=== PATIENT | male | born 1950 | race Caucasian/White ===

== ENCOUNTER 2016-11-28 14:01 | Inpatient (IN) ==
[2016-11-28] MEDS ORDERED: methylPREDNISolone 125 MG/2 ML VIAL IV ONE (14:13)
[2016-11-28] MEDS ORDERED: Aspirin 325 MG TABLET PO ONE (14:13)
[2016-11-28] MEDS ORDERED: Ipratropium/Albuterol Neb 3 ML IH ONE (14:13)
--- NOTE | 2016-11-28 14:20 | Emergency Department Note ---
Disposition Clinical Impression: Acute exacerbation of chronic obstructive airways disease, Community acquired pneumonia, Pulmonary edema Disposition: Admitted As Inpatient Condition: Fair Referrals: NO,PCP [Non-Partnered Physician] - Forms: ED Satisfaction Letter Time of Disposition: 15:16 SOB HPI - General Chief Complaint: ED Shortness of Breath/Dyspnea Stated Complaint: ELSY, COPD Time Seen by Provider: 11/28/16 14:14 Source: patient, EMS Mode of arrival: ambulatory Limitations: no limitations Nursing Notes Reviewed: Yes Vital Signs Reviewed: Yes - History of Present Illness This is a 66-year-old male who comes in for increased shortness of breath over the last 2 weeks. Patient is running a fever currently here. Patient has had a productive cough. Patient is a cigarette smoker and does have COPD. Patient denies any chest pain although he states he does feel tight. Patient is not having any abdominal pain, vomiting, diarrhea, or urinary symptoms. Pt Subjective Complaint: shortness of breath Onset (ago): week(s) (2) Severity: moderate - Related Data Home Medications Medication Instructions Recorded Confirmed Atorvastatin Calcium [Lipitor] 80 mg PO HS 09/03/15 11/28/16 Clopidogrel [Plavix] 75 mg PO QAM 09/03/15 11/28/16 Furosemide [Lasix] 40 mg PO BID 09/03/15 11/28/16 Levothyroxine [Synthroid] 50 mcg PO DAILY 09/03/15 11/28/16 Multivitamin [Multi-Day Vitamins] 1 each PO QAM 09/03/15 11/28/16 Potassium Chloride [Klor-Con 10 meq PO DAILY 09/03/15 11/28/16 Sprinkle] Ropinirole HCl [Requip] 2 mg PO HS 09/03/15 11/28/16 Spironolactone [Aldactone] 25 mg PO BID 09/03/15 11/28/16 TraZODone 50 mg PO HS 09/03/15 11/28/16 Sertraline HCl 150 mg PO DAILY 09/14/15 11/28/16 Tiotropium [Spiriva] 18 mcg IH DAILY 09/14/15 11/28/16 Warfarin [Coumadin] 2 mg PO MOWETHFRSA 09/14/15 11/28/16 Amiodarone [Cordarone] 200 mg PO HS 09/23/15 11/28/16 Mexiletine [Mexitil] 150 mg PO TID 09/23/15 11/28/16 Albuterol Sulfate [Proair Hfa] 2 puff IH Q4H PRN 09/09/16 11/28/16 Buspirone HCl [Buspar] 10 mg PO TID 09/09/16 11/28/16 Carvedilol 3.125 mg PO BID 10/18/16 11/28/16 Lisinopril 2.5 mg PO DAILY 10/18/16 11/28/16 Warfarin [Coumadin] 4 mg PO SUTU 10/18/16 11/28/16 Guaifenesin/Codeine Phosphate 5 ml PO Q4H 11/28/16 11/28/16 [Guaifenesin-Codeine Syrup] Previous Rx's Medication Instructions Recorded Cephalexin [Keflex] 500 mg PO QID #40 capsule 11/24/16 PredniSONE [Prednisone] 60 mg PO DAILY 5 Days 11/24/16 Allergies Allergy/AdvReac Type Severity Reaction Status Date / Time Oxycodone [From Percocet] Allergy Itching Verified 10/18/16 10:41 All systems ED: reviewed and negative except as stated. Constitutional: Denies: fever, chills, weakness, weight change Eyes: Denies: eye pain, eye discharge, vision change ENT ED: Denies: ear pain, throat pain, dental pain, hearing loss, epistaxis, congestion, dysphagia Cardiovascular: Denies: chest pain, palpitations, dyspnea on exertion, edema, syncope Respiratory: Reports: dyspnea, wheezes. Denies: cough, hemoptysis, stridor Gastrointestinal: Denies: abdominal pain, nausea, vomiting, diarrhea, constipation, hematemesis, melena, hematochezia Genitourinary: Denies: urgency, dysuria, frequency, hematuria Musculoskeletal: Denies: back pain, neck pain, arthralgia, myalgia Integumentary: Denies: rash, abrasion, lesions Neurological: Denies: headache, weakness, numbness, paresthesias, confusion, abnormal gait, vertigo Psychiatric: Denies: anxiety, depression, suicidal thoughts, homicidal thoughts , auditory hallucinations, visual hallucinations Endocrine: Denies: fatigue Hematological/Lymphatic: Denies: easy bleeding, easy bruising Allergic/Immunologic: Denies: facial swelling, urticaria Past Medical History - Past Medical History Attestation: Yes The following information was validated with the patient. Source: patient Medical history: Reports: COPD, hyperlipidemia, hypertension, myocardial infarction, other Surgical history: Reports: coronary bypass (CABG), pacemaker/AICD, other, AICD Psychiatric history: Reports: anxiety, depression, other - Social History Smoking Status: Current every day smoker Smokeless Tobacco Status: No Alcohol use: Reports: none Drug use: Reports: none Physical Exam - General Limitations: no limitations General appearance: alert, in no apparent distress - Head Head exam: atraumatic, normocephalic, normal inspection - Eye Eye exam: Present: normal appearance, PERRL, EOMI - ENT ENT exam: normal exam, normal oropharynx, mucous membranes moist - Expanded ENT Exam External ear exam: Present: normal external inspection Mouth exam: Present: normal external inspection Teeth exam: Present: normal inspection Throat exam: Present: normal inspection - Neck Neck exam: Present: normal inspection, full ROM, trachea midline - Chest Chest inspection: Present: normal inspection, symmetric chest wall rise - Respiratory Respiratory exam: Present: wheezes, other (rhonchi) - Cardiovascular Cardiovascular exam: Present: normal rhythm, tachycardia, normal heart sounds - Abdominal Exam Abdominal exam: Present: soft, Non-Tender. Absent: tenderness, distention, guarding, rebound, rigidity - Extremities Exam Extremities exam: Present: normal inspection, full ROM. Absent: tenderness, pedal edema - Expanded Upper Extremity Exam Shoulder exam: Present: normal inspection, full ROM Arm exam: Present: normal inspection, full ROM Elbow exam: Present: normal inspection, full ROM Forearm/Wrist exam: Present: normal inspection, full ROM Hand exam: Present: normal inspection, full ROM Vascular exam: Normal: capillary refill, radial pulse - Expanded Lower Extremity Exam Hip/Pelvis exam: Present: normal inspection, full ROM Upper leg exam: Present: normal inspection, full ROM Knee exam: Present: normal inspection, full ROM Lower leg exam: Present: normal inspection, full ROM Ankle exam: Present: normal inspection, full ROM Foot/toe exam: Present: normal inspection, full ROM Neurovascular/Tendon exam: Absent: motor deficit, sensory deficit, tendon deficit - Back Exam Back exam: Present: normal inspection, full ROM. Absent: tenderness - Neurological Exam Neurological exam: Present: alert, oriented X3 - Expanded Neurological Exam Patient oriented to: Present: person, place, time Coma Scale Eye Opening: Spontaneous Coma Scale Motor Response: Obeys Commands Coma Scale Verbal Response: Oriented Coma Scale Total: 15 - Psychiatric Psychiatric exam: Present: normal affect, normal mood - Skin Skin exam: Present: warm, dry, intact, normal color Course - Consultations Consultation #1: I spoke with Dr. Minh koch to admit. Time: 15:51 Vital Signs Temperature 101.2 F H 11/28/16 14:04 Pulse Rate 103 11/28/16 14:04 Respiratory Rate 24 11/28/16 14:04 Blood Pressure 128/74 11/28/16 14:04 O2 Sat by Pulse Oximetry 75 L 11/28/16 14:04 Temperature 101.2 F H 11/28/16 14:04 Pulse Rate 86 11/28/16 15:18 Respiratory Rate 20 11/28/16 15:18 Blood Pressure 92/60 11/28/16 15:18 O2 Sat by Pulse Oximetry 98 11/28/16 15:18 Oxygen Delivery Oxygen Delivery Bipap Shortness of Breath/Dyspnea - Medical Records Medical records reviewed: Yes I reviewed the patient's medical records. - Lab Data Lab results reviewed: Yes I reviewed the patient's lab results. Result diagrams: 11/28/16 14:34 11/28/16 14:34 Lab Results 11/28/16 11/28/16 11/28/16 Range/Units 14:34 14:34 14:34 WBC 20.4 H (4.3-11.1) K/mcL RBC 4.21 (4.19-5.50) M/mcL Hgb 13.3 (12.9-16.9) g/dL Hct 39.8 (37.5-50.1) % MCV 94.5 (83.0-100.0) fL MCH 31.6 (28.0-33.3) pg MCHC 33.4 (31.6-35.5) g/dL RDW 14.2 (11.5-14.5) % Plt Count 283 (140-400) K/mcL MPV 9.6 (9.4-12.4) fL Immature Gran % 1.4 (0-4) % Seg Neutrophils % 80.2 % Lymphocytes % 10.7 % Monocytes % 7.6 % Eosinophils % 0.0 % Basophils % 0.1 % Neutrophils # 16.3 H (1.6-8.9) K/mcL Lymphocytes # 2.2 (0.6-4.6) K/mcL Monocytes # 1.5 H (0.0-1.3) K/mcL Eosinophils # 0.0 (0.0-0.6) K/mcL Basophils # 0.0 (0.0-0.2) K/mcL Nucleated RBCs/100 WBC 0.2 H (0) /100 WBC ABG pH (7.32-7.45) pH Units ABG pCO2 (35-45) mmHg ABG pO2 (85-104) mmHg ABG HCO3 (21-27) mEQ/L ABG Total CO2 (20-26) mEq/L ABG O2 Saturation (95-98) % ABG Base Excess (-2.0 to 3.0) mEq/L Blood Gas Modality Inspired O2 % Sodium 134 L (136-145) mEq/L Potassium 4.3 (3.5-4.5) mEq/L Chloride 100 (98-109) mEq/L Carbon Dioxide 21 (19-29) mEq/L BUN 23 (8-26) mg/dL Creatinine 0.88 (0.72-1.25) mg/dL Est GFR ( Amer) > 60 (> 60) Est GFR (Non-Af Amer) > 60 (> 60) BUN/Creatinine Ratio 26 (6-26) Glucose 99 (70-99) mg/dL Calculated Osmolality 282 (280-300) Lactic Acid (0.5-2.2) mmol/L Calcium 9.0 (8.6-10.8) mg/dL Troponin I (0-0.03) ng/mL B-Natriuretic Peptide 876 H (0-100) pg/mL 11/28/16 11/28/16 11/28/16 Range/Units 14:34 14:34 14:46 WBC (4.3-11.1) K/mcL RBC (4.19-5.50) M/mcL Hgb (12.9-16.9) g/dL Hct (37.5-50.1) % MCV (83.0-100.0) fL MCH (28.0-33.3) pg MCHC (31.6-35.5) g/dL RDW (11.5-14.5) % Plt Count (140-400) K/mcL MPV (9.4-12.4) fL Immature Gran % (0-4) % Seg Neutrophils % % Lymphocytes % % Monocytes % % Eosinophils % % Basophils % % Neutrophils # (1.6-8.9) K/mcL Lymphocytes # (0.6-4.6) K/mcL Monocytes # (0.0-1.3) K/mcL Eosinophils # (0.0-0.6) K/mcL Basophils # (0.0-0.2) K/mcL Nucleated RBCs/100 WBC (0) /100 WBC ABG pH 7.42 (7.32-7.45) pH Units ABG pCO2 41 (35-45) mmHg ABG pO2 107 H (85-104) mmHg ABG HCO3 26.6 (21-27) mEQ/L ABG Total CO2 27.9 H (20-26) mEq/L ABG O2 Saturation 98 (95-98) % ABG Base Excess 1.9 (-2.0 to 3.0) mEq/L Blood Gas Modality BIPAP Inspired O2 80 % Sodium (136-145) mEq/L Potassium (3.5-4.5) mEq/L Chloride (98-109) mEq/L Carbon Dioxide (19-29) mEq/L BUN (8-26) mg/dL Creatinine (0.72-1.25) mg/dL Est GFR ( Amer) (> 60) Est GFR (Non-Af Amer) (> 60) BUN/Creatinine Ratio (6-26) Glucose (70-99) mg/dL Calculated Osmolality (280-300) Lactic Acid 2.3 H (0.5-2.2) mmol/L Calcium (8.6-10.8) mg/dL Troponin I 0.02 (0-0.03) ng/mL B-Natriuretic Peptide (0-100) pg/mL - Radiology Data Radiology results reviewed: Yes I reviewed the patient's radiology results. - EKG Data EKG attestation: Yes I reviewed and interpreted this EKG. EKG shows normal: Reports: sinus rhythm Rate: Reports: normal (paced) When compared to previous EKG there are: no significant changes Interpretation: Reports: no acute changes
[2016-11-28 14:47] LABS: Basophils % 0.1 %; Hematocrit 39.8 % (37.5-50.1); Hemoglobin 13.3 g/dL (12.9-16.9); Immature Granulocytes % 1.4 % (0-4); Lymphocytes # 2.2 K/mcL (0.6-4.6); Lymphocytes % 10.7 %; Mean Corpuscular HGB Conc 33.4 g/dL (31.6-35.5); Mean Corpuscular Hemoglobin 31.6 pg (28.0-33.3); Mean Corpuscular Volume 94.5 fL (83.0-100.0); Mean Platelet Volume 9.6 fL (9.4-12.4); Monocytes # 1.5 K/mcL (0.0-1.3); Monocytes % 7.6 %; Neutrophils # 16.3 K/mcL (1.6-8.9); Nucleated Red Blood Cells 0.2 /100 WBC (0); Platelet Count 283 K/mcL (140-400); Red Blood Count 4.21 M/mcL (4.19-5.50); Red Cell Distribution Width 14.2 % (11.5-14.5); Segmented Neutrophils % 80.2 %
[2016-11-28] MEDS ORDERED: Levofloxacin 750 MG/150 ML 750 MG/150 ML BAG IVPB ONE (14:55)
[2016-11-28 14:57] LABS: ABG Base Excess 1.9 mEq/L (-2.0 to 3.0); ABG HCO3 26.6 mEQ/L (21-27); ABG Oxygen Saturation 98 % (95-98); ABG PCO2 41 mmHg (35-45); ABG PH 7.42 pH Units (7.32-7.45); ABG PO2 107 mmHg (85-104); ABG TCO2 27.9 mEq/L (20-26); Blood Gas FiO2 80 %
[2016-11-28 15:00] LABS: BUN/Creatinine Ratio 26 (6-26); Blood Urea Nitrogen 23 mg/dL (8-26); Carbon Dioxide 21 mEq/L (19-29); Chloride 100 mEq/L (98-109); Glucose 99 mg/dL (70-99); Osmolality,Calculated 282 (280-300); Potassium 4.3 mEq/L (3.5-4.5); Sodium 134 mEq/L (136-145); eGFR For African Americans > 60 (> 60); eGFR For Non-African Americans > 60 (> 60)
[2016-11-28] MEDS ORDERED: 0.9 % Sodium Chloride 1,000 ML IV SCH (15:45)
[2016-11-28 16:03] LABS: Activated Partial Thrombo Time 36.4 Seconds (26.0-36.0)
[2016-11-28 16:08] LABS: INR 6.6
[2016-11-28 16:23] LABS: Magnesium 1.7 mg/dL (1.6-2.6)
[2016-11-28] MEDS ORDERED: Ondansetron 4 MG/2 ML VIAL IVP PRN (19:11)
[2016-11-28] MEDS ORDERED: Acetaminophen 325 MG TABLET PO PRN (19:11)
[2016-11-28] MEDS ORDERED: Naloxone 0.4 MG/ML INJ IVP PRN (19:11)
--- NOTE | 2016-11-28 19:29 | Internal Med History&Physical ---
Date of Encounter: 11/28/16 Time of Encounter: 17:27 Assessment and Plan (1) Supratherapeutic INR Current visit: Yes Status: Acute Hold Coumadin. Check daily INR, consult pharmacy. (2) Acute exacerbation of chronic obstructive airways disease Current visit: Yes Status: Acute Inhaled bronchodilators. Start high-dose IV steroids. Supplemental oxygen. Positive pressure ventilation. Check blood gas in the morning. Smoking cessation counseling given. (3) Community acquired pneumonia Current visit: Yes Status: Acute He has a history of recurrent pneumonias and has been treated with antibiotics. At this point I will start broad-spectrum IV antibiotics with Zosyn and vancomycin. Follow-up blood culture and sensitivities. (4) DVT prophylaxis Current visit: No Status: Acute The patient is supratherapeutic on Coumadin additional prophylaxis needed at this time. We will check daily INR and continue warfarin when the INR dips below 3.0. (5) History of DVT (deep vein thrombosis) Current visit: No Status: Acute Continue Coumadin. (6) Ischemic cardiomyopathy Current visit: No Status: Chronic (7) Tobacco use disorder Current visit: No Status: Chronic Start NicoDerm. Internal Medicine - H&P: HPI Chief complaint: Shortness of breath Admitted From: Emergency Dept Plans for Post Hospital Care: Home History of present illness: Mr. Garrido is a 66 year old male with multiple medical comorbidities including CAD status post CABG, COPD and chronic hypoxic respiratory failure who presented to the hospital for shortness of breath. The history is limited by respiratory distress and most of the history is obtained from the patient's . The patient is currently on BiPAP. He has been having 3 weeks of progressively worsening shortness of breath initially has had symptoms of upper respiratory tract infection however that has resolved. Symptoms are associated with dry cough, substernal dull chest pain and subjective fevers. A 14 point review of systems was negative except as above Social history: Denies alcohol, he is a long-term smoker, currently smokes 10 cigarettes a day, denies drug use. Family history: Reviewed and found to be noncontributory. Past Med Surg Social Fam HX - Past Medical History Medical history: COPD, hyperlipidemia, hypertension, myocardial infarction, other Psychiatric history: anxiety, depression, other - Past Surgical History Surgical History: coronary bypass (CABG), pacemaker/AICD, other, AICD - Social History Smoking Status: Current every day smoker Smokeless Tobacco Status: No Alcohol use: none Drug use: none - Family History Mother Living Status: Hx Family Cancer: Yes Father Hx Family Cardiac Disorders: Yes Internal Medicine - H&P: Meds Atorvastatin Calcium [Lipitor] 80 mg PO HS 09/03/15 [History] Clopidogrel [Plavix] 75 mg PO QAM 09/03/15 [History] Furosemide [Lasix] 40 mg PO BID 09/03/15 [History] Levothyroxine [Synthroid] 50 mcg PO DAILY 09/03/15 [History] Multivitamin [Multi-Day Vitamins] 1 each PO QAM 09/03/15 [History] Potassium Chloride [Klor-Con Sprinkle] 10 meq PO DAILY 09/03/15 [History] Ropinirole HCl [Requip] 2 mg PO HS 09/03/15 [History] Spironolactone [Aldactone] 25 mg PO BID 09/03/15 [History] TraZODone 50 mg PO HS 09/03/15 [History] Sertraline HCl 150 mg PO DAILY 09/14/15 [History] Tiotropium [Spiriva] 18 mcg IH DAILY 09/14/15 [History] Warfarin [Coumadin] 2 mg PO MOWETHFRSA 09/14/15 [History] Amiodarone [Cordarone] 200 mg PO HS 09/23/15 [History] Mexiletine [Mexitil] 150 mg PO TID 09/23/15 [History] Albuterol Sulfate [Proair Hfa] 2 puff IH Q4H PRN 09/09/16 [History] Buspirone HCl [Buspar] 10 mg PO TID 09/09/16 [History] Carvedilol 3.125 mg PO BID 10/18/16 [History] Lisinopril 2.5 mg PO DAILY 10/18/16 [History] Warfarin [Coumadin] 4 mg PO SUTU 10/18/16 [History] Cephalexin [Keflex] 500 mg PO QID #40 capsule 11/24/16 [Rx] PredniSONE [Prednisone] 60 mg PO DAILY 5 Days 11/24/16 [Rx] Guaifenesin/Codeine Phosphate [Guaifenesin-Codeine Syrup] 5 ml PO Q4H 11/28/16 [ History] Allergies Oxycodone [From Percocet] Allergy (Verified 10/18/16 10:41) Itching All Systems PM: A 10-system review of systems was performed and is negative for pertinent findings except as documented above in the HPI. - Constitutional Vitals: Temp Pulse Resp BP Pulse Ox 97.6 F 81 20 104/80 83 L 11/28/16 19:25 11/28/16 19:25 11/28/16 19:25 11/28/16 19:25 11/28/16 19:25 General appearance: Present: mild distress, A&O X 3 - Eye Eye exam: Present: PERRL, conjuntiva pink, sclera anicteric Pupils: Present: PERRL - Neck Neck exam general surgery: Present: supple, trachea midline. Absent: lymphadenopathy - Respiratory Respiratory exam: Present: decreased breath sounds, prolonged expiratory phase. Absent: accessory muscle use, rales, rhonchi, wheezes - Cardiovascular Cardiovascular exam: Present: RRR, +S1, +S2. Absent: diastolic murmur, gallop, rubs, systolic murmur - GI/Abdominal GI/Abdominal exam: Present: normal bowel sounds, soft, no peritoneal signs. Absent: distended, tenderness - Extremities Exam Extremities exam: Present: warm, radial pulses palpable and symetrical. Absent : calf tenderness, cyanotic, pedal edema - Neurological Exam Neurological exam: Present: CN II-XII intact, oriented X3, no focal deficits. Absent: pronater drift, facial droop, speech deficit - Skin Skin exam: Present: dry, intact Internal Med - H&P Results - Labs CBC & Chem 7: 11/28/16 14:34 11/28/16 14:34 - Impressions Chest x-ray reviewed by myself reveals right lower lobe interstitial infiltrate consistent with pneumonia. - VTE Reasons for not Prescribing Prophylaxis: Not indicated-Anticoagulated or INR therapeutic
[2016-11-28] MEDS ORDERED: Warfarin perPT PO PRN (20:00)
[2016-11-28] MEDS: Ipratropium/Albuterol Neb 3 ML IH SCH ×2 (20:31→23:04)
[2016-11-28] MEDS: Spironolactone 25 MG TABLET PO SCH (21:00)
[2016-11-28] MEDS: traZODone 50 MG TABLET PO SCH (21:00)
[2016-11-28] MEDS: *HR* Amiodarone 200 MG TABLET PO SCH (21:00)
[2016-11-28] MEDS: rOPINIRole 1 MG TABLET PO SCH (21:00)
[2016-11-28] MEDS: Vancomycin 1,250 MG in D5% in Water 250 ML IVPB SCH (21:03)
[2016-11-28] MEDS: Nicotine 21 MG PATCH.TD24 TD SCH (22:44)
[2016-11-28] MEDS: 0.9 % Sodium Chloride 1,000 ML IVC SCH (22:45)
[2016-11-29] MEDS: methylPREDNISolone 125 MG/2 ML VIAL IVP SCH ×5 (01:19→23:51)
[2016-11-29] MEDS: Piperacillin/Tazobactam 3.375 GM in D5% in Water (Mini-Bag+) 100 ML IVPB SCH ×4 (01:20→23:51)
[2016-11-29 02:18] LABS: VBG HCO3 26.4 mEq/L (21-27); VBG PH 7.34 pH Units (7.32-7.42)
[2016-11-29 02:21] LABS: Hematocrit 40.9 % (37.5-50.1); Hemoglobin 13.3 g/dL (12.9-16.9); Mean Corpuscular HGB Conc 32.5 g/dL (31.6-35.5); Mean Corpuscular Hemoglobin 31.2 pg (28.0-33.3); Mean Platelet Volume 9.8 fL (9.4-12.4); Platelet Count 255 K/mcL (140-400); Red Blood Count 4.26 M/mcL (4.19-5.50); Red Cell Distribution Width 14.4 % (11.5-14.5)
[2016-11-29 02:32] LABS: BUN/Creatinine Ratio 25 (6-26); Blood Urea Nitrogen 20 mg/dL (8-26); Calcium 9.1 mg/dL (8.6-10.8); Carbon Dioxide 21 mEq/L (19-29); Chloride 100 mEq/L (98-109); Glucose 182 mg/dL (70-99); Magnesium 2.2 mg/dL (1.6-2.6); Osmolality,Calculated 283 (280-300); Potassium 4.2 mEq/L (3.5-4.5); Sodium 133 mEq/L (136-145); eGFR For African Americans > 60 (> 60); eGFR For Non-African Americans > 60 (> 60)
[2016-11-29 02:33] LABS: INR 4.9; Prothrombin Time 55.7 Seconds (9.4-12.1)
[2016-11-29 03:03] LABS: Lymphocytes # 1.4 K/mcL (0.6-4.6); Monocytes # 2.1 K/mcL (0.0-1.3); Neutrophils # 13.7 K/mcL (1.6-8.9); Platelet Estimate Normal (Normal)
[2016-11-29] MEDS: Ipratropium/Albuterol Neb 3 ML IH SCH ×6 (04:03→23:15)
[2016-11-29] MEDS: 0.9 % Sodium Chloride 1,000 ML IVC SCH (05:49)
[2016-11-29] MEDS: Spironolactone 25 MG TABLET PO SCH ×2 (09:18→20:41)
[2016-11-29] MEDS: Nicotine 21 MG PATCH.TD24 TD SCH (09:20)
[2016-11-29] MEDS: Vancomycin 1,250 MG in D5% in Water 250 ML IVPB SCH ×2 (09:21→22:18)
[2016-11-29] MEDS: Pantoprazole 40 MG VIAL IVP SCH (09:22)
[2016-11-29] MEDS: *HR* HYDROmorphone (PF) 1 MG/ML SYRINGE IVP PRN ×3 (09:26→22:18)
--- NOTE | 2016-11-29 10:56 | Internal Med Progress Note ---
Date of Encounter: 11/29/16 Time of Encounter: 10:47 - Assessment and plan (1) Acute exacerbation of chronic obstructive airways disease Current Visit: Yes Status: Acute (2) Community acquired pneumonia Current Visit: Yes Status: Acute (3) Supratherapeutic INR Current Visit: Yes Status: Acute Assessment and plan: continue steroids and nebs, cont oxygen. pt reports home use of oxygen at night abnormal troponin could be due to copd exacerbation, will obtain echo if no recent one done. cont to hold coumadin, monitor inr. - Subjective Interval history: f/u for copd, pt reports some improvement today. - Constitutional Vitals: Temp Pulse Resp BP Pulse Ox 97.5 F L 60 17 123/75 93 L 11/29/16 06:00 11/29/16 06:00 11/29/16 07:51 11/29/16 06:00 11/29/16 07:51 General appearance: Present: mild distress, A&O X 3 - Head Head exam: Present: atraumatic, normocephalic - Eye Eye exam: Present: PERRL, conjuntiva pink, sclera anicteric Pupils: Present: PERRL - Neck Neck exam general surgery: Present: supple, trachea midline. Absent: lymphadenopathy - Respiratory Respiratory exam: Present: decreased breath sounds, CTAB. Absent: accessory muscle use, rales, rhonchi, wheezes - Cardiovascular Cardiovascular exam: Present: RRR, +S1, +S2. Absent: diastolic murmur, gallop, rubs, systolic murmur - GI/Abdominal GI/Abdominal exam: Present: normal bowel sounds, soft, no peritoneal signs. Absent: distended, tenderness - Extremities Exam Extremities exam: Present: warm, radial pulses palpable and symetrical. Absent : calf tenderness, cyanotic, pedal edema - Neurological Exam Neurological exam: Present: CN II-XII intact, oriented X3, no focal deficits. Absent: pronater drift, facial droop, speech deficit - Skin Skin exam: Present: dry, intact Internal Medicine: Result - Labs CBC & Chem 7: 11/29/16 01:17 11/29/16 01:17 Labs: Short CBC 11/29/16 Range/Units : WBC 17.5 H (4.3-11.1) K/mcL Hgb 13.3 (12.9-16.9) g/dL Hct 40.9 (37.5-50.1) % Plt Count 255 (140-400) K/mcL Neutrophils # 13.7 H (1.6-8.9) K/mcL BMP 11/29/16 01:17 Sodium 133 L Potassium 4.2 Chloride 100 Carbon Dioxide 21 BUN 20 Creatinine 0.79 Glucose 182 H Calcium 9.1 Cardiac Enzymes 11/28/16 11/29/16 Range/Units 21:56 01:17 Troponin I 0.19 H* 0.23 H* (0-0.03) ng/mL - ABG Interpretation ABG results: ABG ABG pH 7.42 pH Units (7.32-7.45) 11/28/16 14:46 ABG pCO2 41 mmHg (35-45) 11/28/16 14:46 ABG pO2 107 mmHg (85-104) H 11/28/16 14:46 ABG O2 Saturation 98 % (95-98) 11/28/16 14:46 PT/INR, D-dimer PT 55.7 Seconds (9.4-12.1) H* 11/29/16 01:17 D-Dimer 494 ng/mLFEU (0-500) 11/28/16 14:30 - VTE Reasons for not Prescribing Prophylaxis: Not indicated-Anticoagulated or INR therapeutic Consult Discharge Plan - Plan Referrals: Kiya Smallwood MD [Primary Care Provider] -
--- NOTE | 2016-11-29 14:40 | Electrocardiograph Report ---
[facility] Test Date: 2016-11-28 Pat Name: Kobi Garrido Department: 102 Room: 2NE28 Gender: M [employer]assembly Supervisor: [facility] : 1950 Requested By: Isra Nicole Order Number: [id number] Reading MD: Mily Betts Measurements Intervals [place] Rate: 102 P: 69 OR: 117 QRS: 140 QRSD: 161 T: -35 QT: 388 QTc: 447 Interpretive Statements ELECTRONIC VENTRICULAR PACEMAKER ABNORMAL RHYTHM ECG Electronically Signed On 11-29-16 14:28:38 EST by Mily Betts
[2016-11-29] MEDS: traZODone 50 MG TABLET PO SCH (20:40)
[2016-11-29] MEDS: rOPINIRole 1 MG TABLET PO SCH (20:41)
[2016-11-29] MEDS: *HR* Amiodarone 200 MG TABLET PO SCH (20:41)
[2016-11-30] MEDS: Ipratropium/Albuterol Neb 3 ML IH SCH ×6 (03:53→23:53)
[2016-11-30] MEDS: methylPREDNISolone 125 MG/2 ML VIAL IVP SCH (05:12)
[2016-11-30 06:40] LABS: Basophils % 0.1 %; Hematocrit 36.6 % (37.5-50.1); Hemoglobin 12.3 g/dL (12.9-16.9); Immature Granulocytes % 0.7 % (0-4); Lymphocytes # 0.6 K/mcL (0.6-4.6); Lymphocytes % 2.9 %; Mean Corpuscular HGB Conc 33.6 g/dL (31.6-35.5); Mean Corpuscular Hemoglobin 31.9 pg (28.0-33.3); Mean Corpuscular Volume 94.8 fL (83.0-100.0); Mean Platelet Volume 9.5 fL (9.4-12.4); Monocytes # 0.8 K/mcL (0.0-1.3); Monocytes % 4.1 %; Neutrophils # 17.9 K/mcL (1.6-8.9); Platelet Count 248 K/mcL (140-400); Red Blood Count 3.86 M/mcL (4.19-5.50); Red Cell Distribution Width 14.4 % (11.5-14.5); Segmented Neutrophils % 92.2 %
[2016-11-30 06:46] LABS: Prothrombin Time 45.1 Seconds (9.4-12.1)
[2016-11-30 06:53] LABS: BUN/Creatinine Ratio 32 (6-26); Blood Urea Nitrogen 21 mg/dL (8-26); Calcium 8.5 mg/dL (8.6-10.8); Carbon Dioxide 22 mEq/L (19-29); Chloride 106 mEq/L (98-109); Glucose 197 mg/dL (70-99); Osmolality,Calculated 292 (280-300); Potassium 4.2 mEq/L (3.5-4.5); Sodium 137 mEq/L (136-145); eGFR For African Americans > 60 (> 60); eGFR For Non-African Americans > 60 (> 60)
[2016-11-30] MEDS ORDERED: Aminoglycoside Consult 1 EACH MC ONE (08:15)
[2016-11-30] MEDS: Nicotine 21 MG PATCH.TD24 TD SCH (09:43)
[2016-11-30] MEDS: Spironolactone 25 MG TABLET PO SCH ×2 (09:44→20:33)
[2016-11-30] MEDS: Pantoprazole 40 MG VIAL IVP SCH (09:46)
[2016-11-30] MEDS: Piperacillin/Tazobactam 3.375 GM in D5% in Water (Mini-Bag+) 100 ML IVPB SCH ×3 (09:46→23:23)
[2016-11-30] MEDS ORDERED: methylPREDNISolone 125 MG/2 ML VIAL IVP SCH ×2 (10:35→16:00)
--- NOTE | 2016-11-30 10:52 | Internal Med Progress Note ---
Date of Encounter: 11/30/16 Time of Encounter: 10:46 - Assessment and plan (1) Acute exacerbation of chronic obstructive airways disease Current Visit: Yes Status: Acute (2) Community acquired pneumonia Current Visit: Yes Status: Acute (3) Supratherapeutic INR Current Visit: Yes Status: Acute Assessment and plan: start to wean steroids, likely driving up the leukocytosis. continue nebs, cont oxygen. continue IV Zosyn, stop Vancomycin. will recheck troponin today to ensure it is trending downwards. recent echo shows severely diminshed EF, with pacemaker leads. cont to hold coumadin, mild improvement in the inr today. - Subjective Interval history: f/u for copd, pt reports some sputum production today, denies chest pain. - Constitutional Vitals: Temp Pulse Resp BP Pulse Ox 98.2 F 95 20 121/83 96 11/30/16 09:05 11/30/16 09:05 11/30/16 09:05 11/30/16 09:05 11/30/16 09:05 General appearance: Present: mild distress, A&O X 3 - Head Head exam: Present: atraumatic, normocephalic - Eye Eye exam: Present: PERRL, conjuntiva pink, sclera anicteric Pupils: Present: PERRL - Neck Neck exam general surgery: Present: supple, trachea midline. Absent: lymphadenopathy - Respiratory Respiratory exam: Present: decreased breath sounds, CTAB, rhonchi. Absent: accessory muscle use, rales, wheezes - Cardiovascular Cardiovascular exam: Present: RRR, +S1, +S2. Absent: diastolic murmur, gallop, rubs, systolic murmur - GI/Abdominal GI/Abdominal exam: Present: normal bowel sounds, soft, no peritoneal signs. Absent: distended, tenderness - Extremities Exam Extremities exam: Present: warm, radial pulses palpable and symetrical. Absent : calf tenderness, cyanotic, pedal edema - Neurological Exam Neurological exam: Present: CN II-XII intact, oriented X3, no focal deficits. Absent: pronater drift, facial droop, speech deficit - Skin Skin exam: Present: dry, intact Internal Medicine: Result - Labs CBC & Chem 7: 11/30/16 06:24 11/30/16 06:24 Labs: Short CBC 11/30/16 Range/Units 06:24 WBC 19.5 H (4.3-11.1) K/mcL Hgb 12.3 L (12.9-16.9) g/dL Hct 36.6 L (37.5-50.1) % Plt Count 248 (140-400) K/mcL Neutrophils # 17.9 H (1.6-8.9) K/mcL BMP 11/30/16 06:24 Sodium 137 Potassium 4.2 Chloride 106 Carbon Dioxide 22 BUN 21 Creatinine 0.66 L Glucose 197 H Calcium 8.5 L - ABG Interpretation ABG results: ABG ABG pH 7.42 pH Units (7.32-7.45) 11/28/16 14:46 ABG pCO2 41 mmHg (35-45) 11/28/16 14:46 ABG pO2 107 mmHg (85-104) H 11/28/16 14:46 ABG O2 Saturation 98 % (95-98) 11/28/16 14:46 PT/INR, D-dimer PT 45.1 Seconds (9.4-12.1) H* 11/30/16 06:24 D-Dimer 494 ng/mLFEU (0-500) 11/28/16 14:30 - VTE Reasons for not Prescribing Prophylaxis: Not indicated-Anticoagulated or INR therapeutic Consult Discharge Plan - Plan Referrals: Kiya Smallwood MD [Primary Care Provider] -
[2016-11-30] MEDS: *HR* HYDROmorphone (PF) 1 MG/ML SYRINGE IVP PRN ×2 (14:14→20:38)
[2016-11-30] MEDS: MethylPREDNISolone 40 MG/ML VIAL IVP SCH ×2 (17:16→23:24)
[2016-11-30] MEDS: Furosemide 40 MG TABLET PO SCH (17:17)
[2016-11-30] MEDS: rOPINIRole 1 MG TABLET PO SCH (20:34)
[2016-11-30] MEDS: traZODone 50 MG TABLET PO SCH (20:34)
[2016-11-30] MEDS: *HR* Amiodarone 200 MG TABLET PO SCH (20:34)
[2016-12-01] MEDS: Ipratropium/Albuterol Neb 3 ML IH SCH ×6 (04:00→23:15)
[2016-12-01 05:12] LABS: Basophils % 0.1 %; Hematocrit 36.8 % (37.5-50.1); Hemoglobin 12.3 g/dL (12.9-16.9); Lymphocytes # 0.5 K/mcL (0.6-4.6); Lymphocytes % 3.1 %; Mean Corpuscular HGB Conc 33.4 g/dL (31.6-35.5); Mean Corpuscular Hemoglobin 31.9 pg (28.0-33.3); Mean Corpuscular Volume 95.3 fL (83.0-100.0); Mean Platelet Volume 9.5 fL (9.4-12.4); Monocytes # 0.5 K/mcL (0.0-1.3); Monocytes % 2.8 %; Neutrophils # 15.1 K/mcL (1.6-8.9); Platelet Count 254 K/mcL (140-400); Red Blood Count 3.86 M/mcL (4.19-5.50); Red Cell Distribution Width 14.6 % (11.5-14.5)
[2016-12-01 05:17] LABS: INR 3.1; Prothrombin Time 34.4 Seconds (9.4-12.1)
[2016-12-01 05:25] LABS: BUN/Creatinine Ratio 32 (6-26); Blood Urea Nitrogen 23 mg/dL (8-26); Calcium 8.3 mg/dL (8.6-10.8); Carbon Dioxide 23 mEq/L (19-29); Chloride 106 mEq/L (98-109); Glucose 303 mg/dL (70-99); Osmolality,Calculated 301 (280-300); Potassium 4.3 mEq/L (3.5-4.5); Sodium 138 mEq/L (136-145); eGFR For African Americans > 60 (> 60); eGFR For Non-African Americans > 60 (> 60)
[2016-12-01] MEDS: Nicotine 21 MG PATCH.TD24 TD SCH (08:33)
[2016-12-01] MEDS: Spironolactone 25 MG TABLET PO SCH ×2 (08:34→21:05)
[2016-12-01] MEDS: Furosemide 40 MG TABLET PO SCH ×2 (08:34→15:58)
[2016-12-01] MEDS: Piperacillin/Tazobactam 3.375 GM in D5% in Water (Mini-Bag+) 100 ML IVPB SCH ×2 (08:35→15:54)
[2016-12-01] MEDS: MethylPREDNISolone 40 MG/ML VIAL IVP SCH ×2 (08:35→15:54)
[2016-12-01] MEDS: Pantoprazole 40 MG VIAL IVP SCH (08:36)
[2016-12-01] MEDS: *HR* HYDROmorphone (PF) 1 MG/ML SYRINGE IVP PRN (08:41)
--- NOTE | 2016-12-01 08:58 | Internal Med Progress Note ---
Date of Encounter: 12/01/16 Time of Encounter: 08:57 - Assessment and plan (1) Acute exacerbation of chronic obstructive airways disease Current Visit: Yes Status: Acute (2) Community acquired pneumonia Current Visit: Yes Status: Acute (3) Supratherapeutic INR Current Visit: Yes Status: Acute Assessment and plan: Pt was seen today using 6 lpm of oxygen 02 sats at 92%, will check an ABG and continue to wean oxygen as tolerated will add mucomyst neb. continue to wean steroids, improving leukocytosis. continue IV Zosyn, recent echo shows severely diminshed EF, with pacemaker leads. INR improved, will start coumadin at 3mg daily. - Subjective Interval history: f/u for copd, pt reports still needing high oxygen. denies worsening shortness of breath or chest pain. - Constitutional Vitals: Temp Pulse Resp BP Pulse Ox 98.3 F 71 16 129/87 90 L 12/01/16 08:00 12/01/16 08:00 12/01/16 08:00 12/01/16 08:00 12/01/16 08:00 General appearance: Present: mild distress, A&O X 3 - Head Head exam: Present: atraumatic, normocephalic - Eye Eye exam: Present: PERRL, conjuntiva pink, sclera anicteric Pupils: Present: PERRL - Neck Neck exam general surgery: Present: supple, trachea midline. Absent: lymphadenopathy - Respiratory Respiratory exam: Present: decreased breath sounds. Absent: accessory muscle use, rales, rhonchi, wheezes - Cardiovascular Cardiovascular exam: Present: RRR, +S1, +S2. Absent: diastolic murmur, gallop, rubs, systolic murmur - GI/Abdominal GI/Abdominal exam: Present: normal bowel sounds, soft, no peritoneal signs. Absent: distended, tenderness - Extremities Exam Extremities exam: Present: warm, radial pulses palpable and symetrical. Absent : calf tenderness, cyanotic, pedal edema - Neurological Exam Neurological exam: Present: CN II-XII intact, oriented X3, no focal deficits. Absent: pronater drift, facial droop, speech deficit - Skin Skin exam: Present: dry, intact Internal Medicine: Result - Labs CBC & Chem 7: 12/01/16 04:45 12/01/16 04:45 Labs: Short CBC 12/01/16 Range/Units 04:45 WBC 16.2 H (4.3-11.1) K/mcL Hgb 12.3 L (12.9-16.9) g/dL Hct 36.8 L (37.5-50.1) % Plt Count 254 (140-400) K/mcL Neutrophils # 15.1 H (1.6-8.9) K/mcL BMP 12/01/16 04:45 Sodium 138 Potassium 4.3 Chloride 106 Carbon Dioxide 23 BUN 23 Creatinine 0.72 Glucose 303 H Calcium 8.3 L Cardiac Enzymes 11/30/16 Range/Units 10:47 Troponin I 0.03 (0-0.03) ng/mL - ABG Interpretation ABG results: ABG ABG pH 7.42 pH Units (7.32-7.45) 11/28/16 14:46 ABG pCO2 41 mmHg (35-45) 11/28/16 14:46 ABG pO2 107 mmHg (85-104) H 11/28/16 14:46 ABG O2 Saturation 98 % (95-98) 11/28/16 14:46 PT/INR, D-dimer PT 34.4 Seconds (9.4-12.1) H 12/01/16 04:45 D-Dimer 494 ng/mLFEU (0-500) 11/28/16 14:30 - VTE Reasons for not Prescribing Prophylaxis: Not indicated-Anticoagulated or INR therapeutic Consult Discharge Plan - Plan Instructions: Chronic Obstructive Pulmonary Disease (DC), Pneumonia (DC), Cigarette Smoking and Your Health, Manager Training (GEN) Referrals: Kiya Smallwood MD [Primary Care Provider] - 12/09/16 11:00 am
[2016-12-01] MEDS: Acetylcysteine 10% 4 ML INHSOL IH SCH ×5 (10:08→23:15)
[2016-12-01 10:49] LABS: ABG Base Excess 2.4 mEq/L (-2.0 to 3.0); ABG HCO3 27.2 mEQ/L (21-27); ABG Oxygen Saturation 86 % (95-98); ABG PCO2 42 mmHg (35-45); ABG PH 7.42 pH Units (7.32-7.45); ABG TCO2 28.5 mEq/L (20-26); Blood Gas FiO2 44 %
[2016-12-01 10:51] LABS: ABG PO2 50 mmHg (85-104)
[2016-12-01] MEDS: *HR* HYDROcodone/Acet 7.5/325 mg TABLET PO PRN ×2 (12:23→18:25)
[2016-12-01] MEDS: *HR* Warfarin 3 MG TABLET PO SCH (18:25)
[2016-12-01] MEDS: *HR* Amiodarone 200 MG TABLET PO SCH (21:06)
[2016-12-01] MEDS: traZODone 50 MG TABLET PO SCH (21:08)
[2016-12-01] MEDS: rOPINIRole 1 MG TABLET PO SCH (21:08)
[2016-12-02] MEDS: MethylPREDNISolone 40 MG/ML VIAL IVP SCH ×2 (00:40→11:57)
[2016-12-02] MEDS: Piperacillin/Tazobactam 3.375 GM in D5% in Water (Mini-Bag+) 100 ML IVPB SCH ×4 (00:43→23:46)
[2016-12-02] MEDS: *HR* HYDROcodone/Acet 7.5/325 mg TABLET PO PRN ×2 (01:05→11:56)
[2016-12-02] MEDS: Ipratropium/Albuterol Neb 3 ML IH SCH ×6 (04:09→23:15)
[2016-12-02] MEDS: Acetylcysteine 10% 4 ML INHSOL IH SCH ×6 (04:09→23:14)
[2016-12-02 05:41] LABS: INR 2.6; Prothrombin Time 29.2 Seconds (9.4-12.1)
[2016-12-02 05:43] LABS: Basophils % 0.2 %; Hemoglobin 12.8 g/dL (12.9-16.9); Immature Granulocytes % 1.4 % (0-4); Lymphocytes # 0.6 K/mcL (0.6-4.6); Lymphocytes % 3.6 %; Mean Corpuscular HGB Conc 33.7 g/dL (31.6-35.5); Mean Corpuscular Hemoglobin 32.1 pg (28.0-33.3); Mean Corpuscular Volume 95.2 fL (83.0-100.0); Mean Platelet Volume 9.7 fL (9.4-12.4); Monocytes # 0.6 K/mcL (0.0-1.3); Monocytes % 3.4 %; Neutrophils # 15.6 K/mcL (1.6-8.9); Platelet Count 265 K/mcL (140-400); Red Blood Count 3.99 M/mcL (4.19-5.50); Red Cell Distribution Width 14.3 % (11.5-14.5); Segmented Neutrophils % 91.4 %
[2016-12-02 05:57] LABS: BUN/Creatinine Ratio 31 (6-26); Blood Urea Nitrogen 23 mg/dL (8-26); Calcium 8.5 mg/dL (8.6-10.8); Carbon Dioxide 25 mEq/L (19-29); Chloride 102 mEq/L (98-109); Glucose 261 mg/dL (70-99); Osmolality,Calculated 297 (280-300); Potassium 4.5 mEq/L (3.5-4.5); Sodium 137 mEq/L (136-145); eGFR For African Americans > 60 (> 60); eGFR For Non-African Americans > 60 (> 60)
[2016-12-02] MEDS: Furosemide 40 MG TABLET PO SCH ×2 (11:56→16:15)
[2016-12-02] MEDS: Nicotine 21 MG PATCH.TD24 TD SCH (11:56)
[2016-12-02] MEDS: Spironolactone 25 MG TABLET PO SCH ×2 (11:56→21:48)
[2016-12-02] MEDS: Pantoprazole 40 MG VIAL IVP SCH (11:57)
--- NOTE | 2016-12-02 15:10 | Internal Med Progress Note ---
Date of Encounter: 12/02/16 Time of Encounter: 15:07 - Assessment and plan (1) Acute exacerbation of chronic obstructive airways disease Current Visit: Yes Status: Acute (2) Community acquired pneumonia Current Visit: Yes Status: Acute (3) Supratherapeutic INR Current Visit: Yes Status: Acute Assessment and plan: Pt has been able to wean to 4lpm, will write script for home oxygen in anticipation. Hope to be able to wean down to 2lpm. Worsning wbc likely steroids related, will switch from solumedrol to prednisone. continue mucomyst neb. continue IV Zosyn, recent echo shows severely diminished EF, with pacemaker leads. INR not at goal, continue coumadin at 3mg daily. - Subjective Interval history: f/u for copd, denies worsening shortness of breath or chest pain. - Constitutional Vitals: Temp Pulse Resp BP Pulse Ox 98.3 F 77 18 122/70 94 L 12/02/16 06:53 12/02/16 06:53 12/02/16 11:40 12/02/16 06:53 12/02/16 11:40 General appearance: Present: mild distress, A&O X 3 - Head Head exam: Present: atraumatic, normocephalic - Eye Eye exam: Present: PERRL, conjuntiva pink, sclera anicteric Pupils: Present: PERRL - Neck Neck exam general surgery: Present: supple, trachea midline. Absent: lymphadenopathy - Respiratory Respiratory exam: Present: decreased breath sounds, rhonchi, wheezes. Absent: accessory muscle use, rales - Cardiovascular Cardiovascular exam: Present: RRR, +S1, +S2. Absent: diastolic murmur, gallop, rubs, systolic murmur - GI/Abdominal GI/Abdominal exam: Present: normal bowel sounds, soft, no peritoneal signs. Absent: distended, tenderness - Extremities Exam Extremities exam: Present: warm, radial pulses palpable and symetrical. Absent : calf tenderness, cyanotic, pedal edema - Neurological Exam Neurological exam: Present: CN II-XII intact, oriented X3, no focal deficits. Absent: pronater drift, facial droop, speech deficit - Skin Skin exam: Present: dry, intact Internal Medicine: Result - Labs CBC & Chem 7: 12/02/16 04:45 12/02/16 04:45 Labs: Short CBC 12/02/16 Range/Units 04:45 WBC 17.1 H (4.3-11.1) K/mcL Hgb 12.8 L (12.9-16.9) g/dL Hct 38.0 (37.5-50.1) % Plt Count 265 (140-400) K/mcL Neutrophils # 15.6 H (1.6-8.9) K/mcL BMP 12/02/16 04:45 Sodium 137 Potassium 4.5 Chloride 102 Carbon Dioxide 25 BUN 23 Creatinine 0.74 Glucose 261 H Calcium 8.5 L - ABG Interpretation ABG results: ABG ABG pH 7.42 pH Units (7.32-7.45) 12/01/16 10:40 ABG pCO2 42 mmHg (35-45) 12/01/16 10:40 ABG pO2 50 mmHg (85-104) L* 12/01/16 10:40 ABG O2 Saturation 86 % (95-98) L 12/01/16 10:40 PT/INR, D-dimer PT 29.2 Seconds (9.4-12.1) H 12/02/16 04:45 D-Dimer 494 ng/mLFEU (0-500) 11/28/16 14:30 - VTE Reasons for not Prescribing Prophylaxis: Not indicated-Anticoagulated or INR therapeutic Consult Discharge Plan - Plan Instructions: Chronic Obstructive Pulmonary Disease (DC), Pneumonia (DC), Cigarette Smoking and Your Health, Systems Test Engineer (GEN) Referrals: Kiya Smallwood MD [Primary Care Provider] - 12/09/16 11:00 am
[2016-12-02] MEDS: *HR* Warfarin 3 MG TABLET PO SCH (17:40)
[2016-12-02] MEDS: *HR* HYDROcodone/Acet 10/325 mg TABLET PO PRN (18:50)
[2016-12-02] MEDS: rOPINIRole 1 MG TABLET PO SCH (21:47)
[2016-12-02] MEDS: traZODone 50 MG TABLET PO SCH (21:48)
[2016-12-02] MEDS: *HR* Amiodarone 200 MG TABLET PO SCH (21:49)
[2016-12-03] MEDS: *HR* HYDROcodone/Acet 10/325 mg TABLET PO PRN ×2 (03:42→09:56)
[2016-12-03] MEDS: Ipratropium/Albuterol Neb 3 ML IH SCH ×4 (03:49→15:32)
[2016-12-03] MEDS: Acetylcysteine 10% 4 ML INHSOL IH SCH ×4 (03:49→15:32)
[2016-12-03 06:55] LABS: INR 2.8; Prothrombin Time 31.3 Seconds (9.4-12.1)
[2016-12-03 07:06] LABS: BUN/Creatinine Ratio 29 (6-26); Blood Urea Nitrogen 21 mg/dL (8-26); Calcium 8.7 mg/dL (8.6-10.8); Carbon Dioxide 27 mEq/L (19-29); Chloride 98 mEq/L (98-109); Glucose 160 mg/dL (70-99); Osmolality,Calculated 286 (280-300); Potassium 4.7 mEq/L (3.5-4.5); Sodium 135 mEq/L (136-145); eGFR For African Americans > 60 (> 60); eGFR For Non-African Americans > 60 (> 60)
[2016-12-03 07:32] LABS: Basophils # 0.1 K/mcL (0.0-0.2); Basophils % 0.4 %; Eosinophils % 0.2 %; Hematocrit 41.8 % (37.5-50.1); Hemoglobin 13.9 g/dL (12.9-16.9); Immature Granulocytes % 2.5 % (0-4); Lymphocytes # 1.3 K/mcL (0.6-4.6); Lymphocytes % 6.4 %; Mean Corpuscular HGB Conc 33.3 g/dL (31.6-35.5); Mean Corpuscular Hemoglobin 31.4 pg (28.0-33.3); Mean Corpuscular Volume 94.6 fL (83.0-100.0); Mean Platelet Volume 9.4 fL (9.4-12.4); Monocytes # 1.2 K/mcL (0.0-1.3); Monocytes % 5.9 %; Neutrophils # 17.1 K/mcL (1.6-8.9); Nucleated Red Blood Cells 0.1 /100 WBC (0); Platelet Count 269 K/mcL (140-400); Red Blood Count 4.42 M/mcL (4.19-5.50); Red Cell Distribution Width 14.1 % (11.5-14.5); Segmented Neutrophils % 84.6 %
[2016-12-03] MEDS ORDERED: predniSONE 20 MG TABLET PO SCH (09:00)
[2016-12-03] MEDS: Pantoprazole 40 MG VIAL IVP SCH (09:51)
[2016-12-03] MEDS: Nicotine 21 MG PATCH.TD24 TD SCH (09:56)
[2016-12-03] MEDS: Furosemide 40 MG TABLET PO SCH ×2 (09:57→17:10)
[2016-12-03] MEDS: Spironolactone 25 MG TABLET PO SCH (09:57)
[2016-12-03] MEDS: Piperacillin/Tazobactam 3.375 GM in D5% in Water (Mini-Bag+) 100 ML IVPB SCH ×2 (09:57→16:13)
[2016-12-03 15:36] VITALS: BP 136/88
--- NOTE | 2016-12-03 16:16 | Discharge Summary ---
Date of Encounter: 12/04/16 Time of Encounter: 16:14 - Discharge Diagnosis (1) Acute exacerbation of chronic obstructive airways disease Priority: Primary Status: Acute (2) Community acquired pneumonia Priority: Primary Status: Acute (3) Pulmonary edema Priority: Primary Status: Acute Qualifiers: Qualified Code(s): J81.0 - Acute pulmonary edema (4) Supratherapeutic INR Priority: Primary Status: Acute - Discharge Medications Prescriptions: Albuterol Neb [Proventil Neb] 2.5 mg IH Q4HR PRN #120 vial.neb PRN Reason: Shortness Of Breath/Wheezing Amoxicillin/Clavulanate [Augmentin] 875 mg PO BIDWM #14 tablet Cyanocobalamin (B-12) [Vitamin B12] 1,000 mcg PO DAILY #90 tablet Ergocalciferol (VITAMIN D2) [Drisdol (50,000 Unit)] 50,000 unit PO QWEEK #14 capsule GuaiFENesin ER [Mucinex] 600 mg PO BID #60 tbbp.12hr HYDROcodone/Acet 10/325 mg [[place] 10-325 mg] 1 each PO Q6H PRN #60 tablet PRN Reason: Moderate Pain Nicotine Patch [Nicoderm] 21 mg TD DAILY #30 patch.td24 Omeprazole [PriLOSEC] 40 mg PO DAILY@0730 #30 capsule. Thiamine HCl 250 mg PO DAILY #90 tablet Warfarin [Coumadin] 3 mg PO DAILY@1800 #7 tablet Home Medications: Atorvastatin Calcium [Lipitor] 80 mg PO HS 09/03/15 [History] Clopidogrel [Plavix] 75 mg PO QAM 09/03/15 [History] Furosemide [Lasix] 40 mg PO BID 09/03/15 [History] Levothyroxine [Synthroid] 50 mcg PO DAILY 09/03/15 [History] Multivitamin [Multi-Day Vitamins] 1 each PO QAM 09/03/15 [History] Potassium Chloride [Klor-Con Sprinkle] 10 meq PO DAILY 09/03/15 [History] Ropinirole HCl [Requip] 2 mg PO HS 09/03/15 [History] Spironolactone [Aldactone] 25 mg PO BID 09/03/15 [History] TraZODone 50 mg PO HS 09/03/15 [History] Sertraline HCl 150 mg PO DAILY 09/14/15 [History] Tiotropium [Spiriva] 18 mcg IH DAILY 09/14/15 [History] Amiodarone [Cordarone] 200 mg PO HS 09/23/15 [History] Mexiletine [Mexitil] 150 mg PO TID 09/23/15 [History] Buspirone HCl [Buspar] 10 mg PO TID 09/09/16 [History] Carvedilol 3.125 mg PO BID 10/18/16 [History] Lisinopril 2.5 mg PO DAILY 10/18/16 [History] Acetaminophen [Tylenol] 650 mg PO Q6HR PRN #0 tablet 12/03/16 [Rx] Albuterol Neb [Proventil Neb] 2.5 mg IH Q4HR PRN #120 vial.neb 12/03/16 [Rx] Amoxicillin/Clavulanate [Augmentin] 875 mg PO BIDWM #14 tablet 12/03/16 [Rx] Cyanocobalamin (B-12) [Vitamin B12] 1,000 mcg PO DAILY #90 tablet 12/03/16 [Rx] Ergocalciferol (VITAMIN D2) [Drisdol (50,000 Unit)] 50,000 unit PO QWEEK #14 capsule 12/03/16 [Rx] GuaiFENesin ER [Mucinex] 600 mg PO BID #60 tbbp.12hr 12/03/16 [Rx] HYDROcodone/Acet 10/325 mg [[place] 10-325 mg] 1 each PO Q6H PRN #60 tablet [Rx] Nicotine Patch [Nicoderm] 21 mg TD DAILY #30 patch.td24 12/03/16 [Rx] Omeprazole [PriLOSEC] 40 mg PO DAILY@0730 #30 capsule. 12/03/16 [Rx] PredniSONE 40 mg PO DAILY 5 Days 12/03/16 [Rx] Thiamine HCl 250 mg PO DAILY #90 tablet 12/03/16 [Rx] Warfarin [Coumadin] 3 mg PO DAILY@1800 #7 tablet 12/03/16 [Rx] Allergies/Adverse Reactions: Allergies Oxycodone [From Percocet] Allergy (Verified 10/18/16 10:41) Itching Date of admission: 11/28/16 18:19 Primary care physician: Kiya Smallwood Consults: 11/30/16 15:40 Consult to Physical Therapy [CONS] Routine Comment: Evaluate, develop and implement POC 11/30/16 15:41 Consult to Occupational Therapy [CONS] Stat Comment: Evaluate, develop and implement POC 11/30/16 15:43 Consult to Aerodynamicist [CONS] Routine Reason for SW Consult: possible need for home oxygen and home health service Discharging clinician: Isaura Bennett - Patient Status Disposition: Home Health Service Condition: Fair Overall status at discharge: patient is progressing back to baseline - Discharge Instructions Instructions: Chronic Obstructive Pulmonary Disease (DC), Pneumonia (DC), Cigarette Smoking and Your Health, Student Services Director (GEN) Follow Up With: Kiya Smallwood MD [Primary Care Provider] - 12/09/16 11:00 am - Diet and Activity Activity: resume usual activities as tolerated Diet: low fat, low cholesterol, low salt diet Hospital course: Mr. Garrido is a 66 year old male with multiple medical comorbidities including CAD status post CABG, COPD, systolic heart failure status post pacemaker and chronic hypoxic respiratory failure who presented to the hospital for shortness of breath.,He has 3 weeks of progressively worsening shortness of breath initially has had symptoms of upper respiratory tract infection . Symptoms are associated with dry cough and subjective fevers Patient was in moderate respiratory distress. On the right patient was placed on BiPAP. Chest x-ray showed right-sided pulmonary edema and superimposed pneumonia .We started patient on IV diuretics in addition to empiric antibiotics, steroid and aerosol treatment . His INR was supratherapeutic. Warfarin was on hold. Once his INR dropped below 3 ,We started warfarin. Continue to wean the patient gradually from BiPAP aswell as nasal canula latter back to his baseline. Patient condition continued to improve. On the day of discharge patient feeling back to his baseline. Patient denies any chest pain. Patient denies any orthopnea or paroxysmal nocturnal dyspnea. I had long discussion with patient about CHF discussed about daily weight discussed how to monitor diuretics use, discussed how to report to family doctor. INR was ordered as an outpatient counseling patient to call her family doctor for further adjustment of his Coumadin dose. My contact information was given to the patient if he needs help during this weekend if he had any question . - Time Spent with Patient Total time spent providing and/or coordinating discharge services: Greater than 30 minutes - Constitutional Vitals: Temp Pulse Resp BP Pulse Ox 97.9 F 67 14 136/88 89 L 12/03/16 15:30 12/03/16 15:30 12/03/16 15:32 12/03/16 15:30 12/03/16 15:32 General appearance: Present: mild distress, A&O X 3 - VTE Reasons for not Prescribing Prophylaxis: Not indicated-Anticoagulated or INR therapeutic
[2016-12-03] MEDS: *HR* Warfarin 3 MG TABLET PO SCH (17:10)
--- NOTE | 2016-12-06 10:00 | Physician Discharge Referral ---
Home Health/Hosp Referral Info Transfer to: Home Health Provider in Charge Post Discharge: PCP - Diagnosis (1) Acute exacerbation of chronic obstructive airways disease Priority: Primary Status: Acute (2) Community acquired pneumonia Priority: Primary Status: Acute (3) Tobacco use disorder Priority: Secondary Status: Chronic - Respiratory Orders Other (Keep sat greater than %) Smoking Cessation: Smoking cessation has been advised. For more information, call the [place] Tobacco Quit Line at 8-439-KMAS-NOW. - Diet/Nutrition Diet/Nutrition Orders: No Added Salt (FORTINO) - Activity Activity Orders: Up ad vlad - Services Needed Following services are medically necessary services: Nursing, Physical Therapy, Occupational Therapy - Transfer Medications Prescriptions: Albuterol Neb [Proventil Neb] 2.5 mg IH Q4HR PRN #120 vial.neb PRN Reason: Shortness Of Breath/Wheezing Amoxicillin/Clavulanate [Augmentin] 875 mg PO BIDWM #14 tablet Cyanocobalamin (B-12) [Vitamin B12] 1,000 mcg PO DAILY #90 tablet Ergocalciferol (VITAMIN D2) [Drisdol (50,000 Unit)] 50,000 unit PO QWEEK #14 capsule GuaiFENesin ER [Mucinex] 600 mg PO BID #60 tbbp.12hr HYDROcodone/Acet 10/325 mg [[place] 10-325 mg] 1 each PO Q6H PRN #60 tablet PRN Reason: Moderate Pain Nicotine Patch [Nicoderm] 21 mg TD DAILY #30 patch.td24 Omeprazole [PriLOSEC] 40 mg PO DAILY@0730 #30 capsule. Thiamine HCl 250 mg PO DAILY #90 tablet Warfarin [Coumadin] 3 mg PO DAILY@1800 #7 tablet Home Medications: Atorvastatin Calcium [Lipitor] 80 mg PO HS 09/03/15 [History] Clopidogrel [Plavix] 75 mg PO QAM 09/03/15 [History] Furosemide [Lasix] 40 mg PO BID 09/03/15 [History] Levothyroxine [Synthroid] 50 mcg PO DAILY 09/03/15 [History] Multivitamin [Multi-Day Vitamins] 1 each PO QAM 09/03/15 [History] Potassium Chloride [Klor-Con Sprinkle] 10 meq PO DAILY 09/03/15 [History] Ropinirole HCl [Requip] 2 mg PO HS 09/03/15 [History] Spironolactone [Aldactone] 25 mg PO BID 09/03/15 [History] TraZODone 50 mg PO HS 09/03/15 [History] Sertraline HCl 150 mg PO DAILY 09/14/15 [History] Tiotropium [Spiriva] 18 mcg IH DAILY 09/14/15 [History] Amiodarone [Cordarone] 200 mg PO HS 09/23/15 [History] Mexiletine [Mexitil] 150 mg PO TID 09/23/15 [History] Buspirone HCl [Buspar] 10 mg PO TID 09/09/16 [History] Carvedilol 3.125 mg PO BID 10/18/16 [History] Lisinopril 2.5 mg PO DAILY 10/18/16 [History] Acetaminophen [Tylenol] 650 mg PO Q6HR PRN #0 tablet 12/03/16 [Rx] Albuterol Neb [Proventil Neb] 2.5 mg IH Q4HR PRN #120 vial.neb 12/03/16 [Rx] Amoxicillin/Clavulanate [Augmentin] 875 mg PO BIDWM #14 tablet 12/03/16 [Rx] Cyanocobalamin (B-12) [Vitamin B12] 1,000 mcg PO DAILY #90 tablet 12/03/16 [Rx] Ergocalciferol (VITAMIN D2) [Drisdol (50,000 Unit)] 50,000 unit PO QWEEK #14 capsule 12/03/16 [Rx] GuaiFENesin ER [Mucinex] 600 mg PO BID #60 tbbp.12hr 12/03/16 [Rx] HYDROcodone/Acet 10/325 mg [[place] 10-325 mg] 1 each PO Q6H PRN #60 tablet [Rx] Nicotine Patch [Nicoderm] 21 mg TD DAILY #30 patch.td24 12/03/16 [Rx] Omeprazole [PriLOSEC] 40 mg PO DAILY@0730 #30 capsule.dr 12/03/16 [Rx] PredniSONE 40 mg PO DAILY 5 Days 12/03/16 [Rx] Thiamine HCl 250 mg PO DAILY #90 tablet 12/03/16 [Rx] Warfarin [Coumadin] 3 mg PO DAILY@1800 #7 tablet 12/03/16 [Rx] Allergies/Adverse Reactions: Allergies Oxycodone [From Percocet] Allergy (Verified 10/18/16 10:41) Itching Certification: Further, I certify that my clinical findings support that this patient is homebound (i.e. absences from home require considerable and taxing effort and are for medical reasons or mandaen services or infrequently or short duration when for other reasons) because: Homebound Reason: Leaving home requires considerable and taxing effort due to condition, Severity of cardiac or pulmonary status limits activity tolerance Attestation: My signature below is to certify that this patient is under my care and that I, or nurse practitioner, or a physician's general surgery physician assistant working with me, has a face-to -face encounter with this patient.
== END 2016-12-03 18:55 | disposition home health service (06) | DRG 189 ==
LOC: 2NENU 14:01 → EMEROO 14:01 → OBSVTOIN 18:19 → SUATTDRO 18:19 → 2NENU 19:00
PROVIDERS: ADMIT Internal Medicine; ATTEND Family Medicine

== ENCOUNTER 2019-06-25 06:25 | Inpatient (IN) ==
[~2019-06-25 06:25] MED LIST: ceFAZolin 1,000 MG, Sodium Chloride IRRigation 1,000 ML IR ONE
[2019-06-25] MEDS ORDERED: Lidocaine -MPF 1% 2 ML AMPUL ONE (06:50)
[2019-06-25] MEDS ORDERED: CeFAZolin Syr 2,000MG/20 ML 2,000 MG/20 ML SYRINGE IVPB ONE (07:02)
[2019-06-25] MEDS ORDERED: *HR* Succinylcholine 200 MG/10 ML VIAL IVP ONE (07:08)
[2019-06-25] MEDS ORDERED: *HR* Propofol 200 MG/20 ML VIAL IVP ONE (07:08)
[2019-06-25] MEDS ORDERED: Albuterol 2.5 MG/3 ML NEBULIZER ONE (07:08)
[2019-06-25] MEDS ORDERED: Lidocaine -MPF 2% 2 ML VIAL ONE ×2 (07:08→07:42)
[2019-06-25] MEDS ORDERED: Lidocaine HCL 4 ML Topical Solution (Laryng-O-Jet Kit Sterile Pak) TP ONE (07:08)
[2019-06-25] MEDS ORDERED: *HR* FentaNYL (PF) 100 MCG/2 ML VIAL ONE (07:08)
[2019-06-25] MEDS ORDERED: *HR* Remifentanil 2 MG VIAL IVP ONE (07:12)
[2019-06-25] MEDS ORDERED: Protamine Sulfate 50 MG/5 ML VIAL IVP ONE (07:15)
[2019-06-25] MEDS ORDERED: Heparin 1,000 UNITS/500 mL 500 ML ONE ×2 (07:15→07:21)
[2019-06-25] MEDS ORDERED: Ringers Solution, Lactated 1,000 ML IVC SCH (07:15)
[2019-06-25] MEDS ORDERED: Lidocaine 1% 20 ML MDV ONE (07:16)
[2019-06-25] MEDS ORDERED: EPHEDrine 50 MG/ML VIAL ONE (07:18)
[2019-06-25] MEDS ORDERED: NiCARdipine 2.5 MG/10 ML Syringe IVPB ONE (07:22)
[2019-06-25] MEDS: Albuterol 2.5 MG/3 ML NEBULIZER IH ONE (07:38)
[2019-06-25] MEDS ORDERED: *HR* Etomidate 40 MG/20 ML VIAL IVP ONE (07:43)
[2019-06-25] MEDS ORDERED: *HR* Promethazine 25 MG/ML VIAL IVP PRN (07:48)
[2019-06-25] MEDS ORDERED: Acetaminophen IV 1,000 MG/100 ML INFUS..BTL IVPB ONE (07:48)
[2019-06-25] MEDS ORDERED: *HR* OxyCODONE Immed Rel 5 MG TABLET PO PRN (07:48)
[2019-06-25] MEDS ORDERED: *HR* Labetalol 20 MG/4 ML SYRINGE IVP PRN (07:48)
[2019-06-25] MEDS ORDERED: *HR* Heparin 5,000 UNIT/ML VIAL ONE (08:19)
[2019-06-25] MEDS ORDERED: Dexamethasone 4 MG/ML VIAL ONE (08:28)
[2019-06-25] MEDS ORDERED: Ondansetron 4 MG/2 ML VIAL ONE (08:28)
[2019-06-25] MEDS ORDERED: *HR* PHENYLEPHRINE 1,000 MCG/10 ML SYRINGE IVP ONE (08:38)
[2019-06-25] MEDS ORDERED: Neostigmine Methylsulfate 3 MG/3 ML SYRINGE ONE (10:43)
[2019-06-25] MEDS ORDERED: Ondansetron 4 MG/2 ML VIAL IVP PRN (12:17)
[2019-06-25] MEDS ORDERED: tiZANidine 4 MG TABLET PO PRN (12:17)
[2019-06-25] MEDS ORDERED: Naloxone 0.4 MG/ML INJ IVP PRN (12:17)
[2019-06-25] MEDS ORDERED: Albuterol 2.5 MG/3 ML NEBULIZER IH PRN (12:17)
[2019-06-25] MEDS ORDERED: traZODone 50 MG TABLET PO PRN (12:17)
[2019-06-25] MEDS ORDERED: NON-FORMULARY MEDICATION 1 EACH EACH (Lactose-Reduced Food [Ensure Liquid] 1 BOTTLE) PO SCH (15:00)
[2019-06-25] MEDS: Gabapentin 300 MG CAPSULE PO SCH ×2 (15:01→20:13)
[2019-06-25] MEDS: carvediloL 6.25 MG TABLET PO SCH (17:47)
[2019-06-25] MEDS: *HR* HYDROcodone/Acet 10/325 mg TABLET PO PRN (20:12)
[2019-06-25] MEDS: Furosemide 40 MG TABLET PO SCH (20:13)
[2019-06-25] MEDS: Spironolactone 25 MG TABLET PO SCH (20:13)
[2019-06-26] MEDS: *HR* HYDROcodone/Acet 10/325 mg TABLET PO PRN (03:00)
[2019-06-26 03:36] LABS: Basophils % 0.1 %; Eosinophils % 0.1 %; Hematocrit 37.5 % (37.5-50.1); Immature Granulocytes % 0.5 % (0-4); Lymphocytes # 1.1 K/mcL (0.6-4.6); Lymphocytes % 8.6 %; Mean Corpuscular HGB Conc 32.5 g/dL (31.6-35.5); Mean Corpuscular Hemoglobin 31.1 pg (28.0-33.3); Mean Corpuscular Volume 95.7 fL (83.0-100.0); Mean Platelet Volume 9.8 fL (9.4-12.4); Monocytes % 8.5 %; Neutrophils # 10.1 K/mcL (1.6-8.9); Platelet Count 191 K/mcL (140-400); Red Blood Count 3.92 M/mcL (4.19-5.50); Red Cell Distribution Width 15.3 % (11.5-14.5); Segmented Neutrophils % 82.2 %; White Blood Count 12.3 K/mcL (4.3-11.1)
[2019-06-26 03:43] LABS: Hemoglobin 12.2 g/dL (12.9-16.9)
[2019-06-26 03:49] LABS: BUN/Creatinine Ratio 15 (6-26); Blood Urea Nitrogen 13 mg/dL (8-23); Calcium 8.9 mg/dL (8.6-10.3); Carbon Dioxide 26 mEq/L (23-29); Chloride 101 mEq/L (98-107); Glucose 135 mg/dL (70-105); Osmolality,Calculated 276 (280-300); Potassium 4.4 mEq/L (3.5-5.1); Sodium 132 mEq/L (136-145); eGFR For African Americans > 60 (> 60); eGFR For Non-African Americans > 60 (> 60)
[2019-06-26] MEDS: Spironolactone 25 MG TABLET PO SCH (08:01)
[2019-06-26] MEDS: carvediloL 6.25 MG TABLET PO SCH (08:01)
[2019-06-26] MEDS: Furosemide 40 MG TABLET PO SCH (08:01)
[2019-06-26] MEDS: Gabapentin 300 MG CAPSULE PO SCH ×2 (08:01→14:00)
[2019-06-26] MEDS ORDERED: rOPINIRole 1 MG TABLET PO SCH (09:00)
[2019-06-26] MEDS ORDERED: *HR* Amiodarone 200 MG TABLET PO SCH (09:00)
[2019-06-26 11:24] VITALS: BP 103/71
== END 2019-06-26 16:25 | disposition home or self-care (01) | DRG 39 ==
LOC: SAMDAY 06:25 → 2NNU 12:29
PROVIDERS: ADMIT Surgery Vascular Surgery; ATTEND Surgery Vascular Surgery

== ENCOUNTER 2020-08-19 19:57 | Observation (INO) ==
[2020-08-19] MEDS ORDERED: Aspirin 325 MG TABLET PO ONE (20:03)
[2020-08-19] MEDS ORDERED: Amiodarone 300 MG in D5% in Water 100 ML IVPB ONE (20:30)
[2020-08-19 20:35] LABS: Basophils % 0.6 %; Red Cell Distribution Width 24.6 % (11.5-14.5)
[2020-08-19] MEDS ORDERED: Amiodarone Premix 150 MG/100 ML BAG IVPB ONE (20:36)
[2020-08-19] MEDS ORDERED: Amiodarone Premix 360 MG/200 ML BAG IVC ONE (20:36)
[2020-08-19 20:37] LABS: Basophils # 0.1 K/mcL (0.0-0.2); Eosinophils # 0.4 K/mcL (0.0-0.6); Eosinophils % 5.1 %; Hematocrit 40.8 % (37.5-50.1); Hemoglobin 12.1 g/dL (12.9-16.9); Immature Granulocytes % 0.1 % (0-4); Lymphocytes # 1.9 K/mcL (0.6-4.6); Lymphocytes % 21.6 %; Mean Corpuscular HGB Conc 29.7 g/dL (31.6-35.5); Mean Corpuscular Hemoglobin 23.6 pg (28.0-33.3); Mean Corpuscular Volume 79.7 fL (83.0-100.0); Monocytes # 0.5 K/mcL (0.0-1.3); Neutrophils # 5.8 K/mcL (1.6-8.9); Platelet Count 253 K/mcL (140-400); Red Blood Count 5.12 M/mcL (4.19-5.50); Segmented Neutrophils % 66.6 %; White Blood Count 8.7 K/mcL (4.3-11.1)
[2020-08-19 20:39] LABS: INR 2.9; Prothrombin Time 33.3 Seconds (9.4-12.1)
[2020-08-19 20:42] LABS: Activated Partial Thrombo Time 40.7 Seconds (26.0-36.0)
[2020-08-19 20:56] LABS: BUN/Creatinine Ratio 12 (6-26); Blood Urea Nitrogen 11 mg/dL (8-23); Calcium 9.1 mg/dL (8.6-10.3); Carbon Dioxide 23 mEq/L (23-29); Chloride 102 mEq/L (98-107); Glucose 160 mg/dL (70-105); Osmolality,Calculated 283 (280-300); Platelet Estimate Normal (Normal); Potassium 3.9 mEq/L (3.5-5.1); Sodium 135 mEq/L (136-145); Troponin I 0.03 ng/mL (< 0.04); eGFR For African Americans > 60 (> 60); eGFR For Non-African Americans > 60 (> 60)
[2020-08-19 21:10] LABS: Thyroid Stimulating Hormone 5.437 mcIU/mL (0.340-5.600)
[2020-08-19 21:20] LABS: Bilirubin,Urine Negative (Negative); Blood,Urine Negative (Negative); Calcium Oxalate Crystals,Urine Present; Clarity,Urine Clear (Clear); Color,Urine Yellow (Yellow); Glucose,Urine (UA) Normal (Normal); Hyaline Casts,Urine Many per lpf (None Seen); Ketones,Urine Negative (Negative); Leukocyte Esterase,Urine Negative (Negative); Mucus,Urine Few per lpf (None-Few); Nitrite,Urine Negative (Negative); Protein,Urine 100 mg/dL (Neg-Trace); RBC,Urine 0-3 per hpf (0-3); Specific Gravity,Urine 1.025 (1.010-1.025); Squamous Epithelial Cell,Urine Few per hpf (None-Few)
[2020-08-19] MEDS ORDERED: Naloxone 0.4 MG/ML INJ IVP PRN (22:12)
[2020-08-19] MEDS ORDERED: Ondansetron 4 MG/2 ML VIAL IVP PRN (22:12)
[2020-08-20] MEDS ORDERED: Amiodarone Premix 360 MG/200 ML BAG IVC SCH ×2 (00:45→02:45)
[2020-08-20] MEDS ORDERED: rOPINIRole 1 MG TABLET PO PRN (02:45)
[2020-08-20] MEDS: *HR* HYDROcodone/Acet 10/325 mg TABLET PO PRN ×2 (03:36→23:06)
[2020-08-20 04:23] LABS: Immature Granulocytes % 0.3 % (0-4)
[2020-08-20 04:25] LABS: Basophils % 0.3 %; Eosinophils # 0.1 K/mcL (0.0-0.6); Eosinophils % 1.2 %; Hematocrit 37.2 % (37.5-50.1); Hemoglobin 10.8 g/dL (12.9-16.9); Lymphocytes # 0.9 K/mcL (0.6-4.6); Mean Corpuscular Hemoglobin 23.3 pg (28.0-33.3); Mean Corpuscular Volume 80.2 fL (83.0-100.0); Mean Platelet Volume 9.3 fL (9.4-12.4); Monocytes # 0.5 K/mcL (0.0-1.3); Monocytes % 6.3 %; Neutrophils # 6.2 K/mcL (1.6-8.9); Platelet Count 229 K/mcL (140-400); Red Blood Count 4.64 M/mcL (4.19-5.50); Red Cell Distribution Width 24.6 % (11.5-14.5); Segmented Neutrophils % 79.9 %; White Blood Count 7.7 K/mcL (4.3-11.1)
[2020-08-20 04:27] LABS: INR 2.8; Prothrombin Time 32.3 Seconds (9.4-12.1)
[2020-08-20 04:30] LABS: Activated Partial Thrombo Time 40.4 Seconds (26.0-36.0)
[2020-08-20 04:45] LABS: BUN/Creatinine Ratio 15 (6-26); Blood Urea Nitrogen 11 mg/dL (8-23); Calcium 8.8 mg/dL (8.6-10.3); Carbon Dioxide 25 mEq/L (23-29); Chloride 103 mEq/L (98-107); Chol/HDL Ratio 3.4 (0-4.9); Cholesterol 98 mg/dL (< 200); Glucose 123 mg/dL (70-105); HDL Cholesterol 29 mg/dL (40-59); LDL Cholesterol,Calculated 56 mg/dL (< 100); Magnesium 1.9 mg/dL (1.6-2.6); Osmolality,Calculated 283 (280-300); Potassium 4.4 mEq/L (3.5-5.1); Sodium 136 mEq/L (136-145); Triglycerides 63 mg/dL (< 150); eGFR For African Americans > 60 (> 60); eGFR For Non-African Americans > 60 (> 60)
[2020-08-20 05:34] LABS: Anisocytosis 1+ (Not Present); Ovalocytes 1+ (Not Present); Platelet Estimate Normal (Normal); Poikilocytosis 1+ (Not Present)
[2020-08-20 05:43] LABS: Hemoglobin 10.9 g/dL (12.9-16.9)
[2020-08-20] MEDS: Furosemide 40 MG TABLET PO SCH ×2 (09:53→17:23)
[2020-08-20] MEDS: Gabapentin 300 MG CAPSULE PO SCH ×3 (09:53→20:08)
[2020-08-20] MEDS: Spironolactone 25 MG TABLET PO SCH (12:03)
[2020-08-20] MEDS: Metoprolol XL (24 HR) Succ 25 MG TAB.ER.24H PO SCH (12:03)
[2020-08-20] MEDS ORDERED: *HR* Warfarin 4 MG TABLET PO ONE (18:00)
[2020-08-20] MEDS ORDERED: Warfarin perPT PO PRN (18:00)
[2020-08-20] MEDS ORDERED: traZODone 50 MG TABLET PO SCH (21:00)
[2020-08-21 05:03] LABS: Hemoglobin 10.9 g/dL (12.9-16.9); Mean Corpuscular HGB Conc 29.5 g/dL (31.6-35.5); Mean Corpuscular Hemoglobin 23.3 pg (28.0-33.3); Mean Corpuscular Volume 79.2 fL (83.0-100.0); Mean Platelet Volume 9.2 fL (9.4-12.4); Platelet Count 219 K/mcL (140-400); Red Blood Count 4.67 M/mcL (4.19-5.50); Red Cell Distribution Width 24.6 % (11.5-14.5); White Blood Count 7.6 K/mcL (4.3-11.1)
[2020-08-21 05:18] LABS: INR 2.5; Prothrombin Time 28.9 Seconds (9.4-12.1)
[2020-08-21] MEDS: *HR* HYDROcodone/Acet 10/325 mg TABLET PO PRN (08:22)
[2020-08-21] MEDS: Furosemide 40 MG TABLET PO SCH (08:22)
[2020-08-21] MEDS: Gabapentin 300 MG CAPSULE PO SCH (08:22)
[2020-08-21] MEDS: Metoprolol XL (24 HR) Succ 25 MG TAB.ER.24H PO SCH (08:22)
[2020-08-21] MEDS: Spironolactone 25 MG TABLET PO SCH (08:22)
[2020-08-21 15:26] VITALS: BP 104/66
[2020-08-21] MEDS ORDERED: *HR* Warfarin 4 MG TABLET PO ONE (18:00)
== END 2020-08-21 15:27 | disposition home or self-care (01) ==
LOC: EMEROOARM 19:57 → CDU 19:57 → 3ANU 08-21 02:47
PROVIDERS: ADMIT Family Medicine; ATTEND Family Medicine

== ENCOUNTER 2021-10-20 21:17 | Inpatient (IN) ==
[2021-10-20] MEDS ORDERED: Amiodarone Premix 150 MG/100 ML BAG IVPB ONE (21:36)
[2021-10-20] MEDS ORDERED: Amiodarone Premix 360 MG/200 ML BAG IVC ONE (21:36)
[2021-10-20 21:45] LABS: Basophils % 0.4 %; Eosinophils # 0.5 K/mcL (0.0-0.6); Eosinophils % 4.8 %; Hematocrit 48.7 % (37.5-50.1); Hemoglobin 16.2 g/dL (12.9-16.9); Immature Granulocytes % 0.2 % (0-4); Lymphocytes % 21.2 %; Mean Corpuscular HGB Conc 33.3 g/dL (31.6-35.5); Mean Corpuscular Hemoglobin 32.6 pg (28.0-33.3); Mean Platelet Volume 9.8 fL (9.4-12.4); Monocytes # 0.7 K/mcL (0.0-1.3); Monocytes % 7.6 %; Neutrophils # 6.1 K/mcL (1.6-8.9); Platelet Count 202 K/mcL (140-400); Red Blood Count 4.97 M/mcL (4.19-5.50); Red Cell Distribution Width 13.7 % (11.5-14.5); Segmented Neutrophils % 65.8 %; White Blood Count 9.3 K/mcL (4.3-11.1)
[2021-10-20 21:52] LABS: INR 1.3; Prothrombin Time 14.7 Seconds (9.4-12.1)
[2021-10-20 21:55] LABS: Activated Partial Thrombo Time 32.5 Seconds (26.0-36.0)
[2021-10-20 22:07] LABS: BUN/Creatinine Ratio 10 (6-26); Blood Urea Nitrogen 10 mg/dL (8-23); Calcium 9.2 mg/dL (8.6-10.3); Carbon Dioxide 25 mEq/L (23-29); Chloride 101 mEq/L (98-107); Glucose 146 mg/dL (70-105); Osmolality,Calculated 282 (280-300); Potassium 4.1 mEq/L (3.5-5.1); Sodium 135 mEq/L (136-145); eGFR For African Americans > 60 (> 60); eGFR For Non-African Americans > 60 (> 60)
[2021-10-20 22:36] LABS: Troponin I 0.04 ng/mL (< 0.04)
[2021-10-21] MEDS ORDERED: Melatonin 3 MG TABLET PO PRN (00:03)
[2021-10-21] MEDS ORDERED: Naloxone 0.4 MG/ML INJ IVP PRN (00:03)
[2021-10-21] MEDS ORDERED: *HR* Heparin 5,000 UNIT/ML VIAL IVP PRN ×2 (00:08)
[2021-10-21] MEDS ORDERED: traZODone 50 MG TABLET PO PRN (00:10)
[2021-10-21] MEDS ORDERED: Heparin 25,000UNIT/250ML 1/2NS 25,000 UNIT/250 ML IV.SOLN IVC SCH (00:15)
[2021-10-21 00:22] LABS: Magnesium 1.8 mg/dL (1.6-2.6); Phosphorous 2.8 mg/dL (2.7-4.5)
[2021-10-21 01:03] LABS: Hematocrit 45.5 % (37.5-50.1); Hemoglobin 14.9 g/dL (12.9-16.9); Mean Corpuscular HGB Conc 32.7 g/dL (31.6-35.5); Mean Corpuscular Hemoglobin 31.8 pg (28.0-33.3); Mean Platelet Volume 9.6 fL (9.4-12.4); Platelet Count 170 K/mcL (140-400); Red Blood Count 4.69 M/mcL (4.19-5.50); Red Cell Distribution Width 13.6 % (11.5-14.5)
[2021-10-21 01:11] LABS: INR 1.4; Prothrombin Time 15.1 Seconds (9.4-12.1)
[2021-10-21 01:18] LABS: BUN/Creatinine Ratio 12 (6-26); Blood Urea Nitrogen 11 mg/dL (8-23); Carbon Dioxide 25 mEq/L (23-29); Chloride 102 mEq/L (98-107); Glucose 128 mg/dL (70-105); Osmolality,Calculated 281 (280-300); Potassium 4.1 mEq/L (3.5-5.1); Sodium 135 mEq/L (136-145); eGFR For African Americans > 60 (> 60); eGFR For Non-African Americans > 60 (> 60)
[2021-10-21 01:28] LABS: Troponin I 0.09 ng/mL (< 0.04)
[2021-10-21] MEDS: Heparin 25,000 UNIT/250 ML 25,000 UNIT/250 ML IV.SOLN IVC SCH (02:27)
[2021-10-21] MEDS: Amiodarone Premix 360 MG/200 ML BAG IVC SCH ×2 (09:19→21:09)
[2021-10-21] MEDS: Multivit/Ca/Min/Fe/FA 1 TAB TABLET PO SCH (09:19)
[2021-10-21 10:29] LABS: Troponin I 0.09 ng/mL (< 0.04)
[2021-10-21 10:31] LABS: Activated Partial Thrombo Time > 360.0 Seconds (26.0-36.0); Heparin anti-factor XA UFH 1.24 IU/mL (0.30-0.70)
[2021-10-21] MEDS ORDERED: Amiodarone Premix 150 MG/100 ML BAG IVPB ONE (11:07)
[2021-10-21] MEDS ORDERED: Perflutren Lipid Microsphere 1.3 ML in 0.9 % Sodium Chloride 8.7 ML IVP PRN (11:57)
[2021-10-21] MEDS ORDERED: 0.9 % Sodium Chloride 2,000 ML ONE (15:11)
[2021-10-21] MEDS ORDERED: ISOVUE-370 200 ML INFUS..BTL ONE (15:12)
[2021-10-21] MEDS ORDERED: *HR* Heparin 10,000 UNIT/10 ML VIAL ONE (15:12)
[2021-10-21] MEDS ORDERED: Nitroglycerin 1,000 MCG/5 ML VIAL IV ONE (15:12)
[2021-10-21] MEDS ORDERED: Heparin 1,000 UNITS/500 mL 500 ML ONE (15:12)
[2021-10-21] MEDS ORDERED: *HR* FentaNYL (PF) 100 MCG/2 ML VIAL ONE (15:50)
[2021-10-21] MEDS ORDERED: *HR* Midazolam HCl 2 MG/2 ML VIAL ONE (15:50)
[2021-10-21] MEDS: Gabapentin 300 MG CAPSULE PO SCH (21:04)
[2021-10-22 01:59] LABS: Basophils % 0.3 %; Eosinophils # 0.3 K/mcL (0.0-0.6); Eosinophils % 2.7 %; Hematocrit 44.6 % (37.5-50.1); Hemoglobin 14.9 g/dL (12.9-16.9); Immature Granulocytes % 0.3 % (0-4); Lymphocytes # 1.6 K/mcL (0.6-4.6); Lymphocytes % 17.9 %; Mean Corpuscular HGB Conc 33.4 g/dL (31.6-35.5); Mean Corpuscular Hemoglobin 32.6 pg (28.0-33.3); Mean Corpuscular Volume 97.6 fL (83.0-100.0); Mean Platelet Volume 9.6 fL (9.4-12.4); Monocytes # 0.7 K/mcL (0.0-1.3); Monocytes % 7.8 %; Neutrophils # 6.5 K/mcL (1.6-8.9); Platelet Count 164 K/mcL (140-400); Red Blood Count 4.57 M/mcL (4.19-5.50); Red Cell Distribution Width 13.6 % (11.5-14.5); White Blood Count 9.1 K/mcL (4.3-11.1)
[2021-10-22 02:26] LABS: Alanine Aminotransferase 10 Units/L (7-52); Albumin 3.8 g/dL (3.5-5.7); Albumin/Globulin Ratio 1.3 (1.1-2.2); Alkaline Phosphatase 81 Units/L (34-104); Aspartate Amino Transferase 21 Units/L (13-39); BUN/Creatinine Ratio 13 (6-26); Bilirubin,Total 0.7 mg/dL (0.3-1.0); Blood Urea Nitrogen 11 mg/dL (8-23); Calcium 8.9 mg/dL (8.6-10.3); Carbon Dioxide 23 mEq/L (23-29); Chloride 104 mEq/L (98-107); Globulin 2.9 g/dL (2.4-3.5); Glucose 100 mg/dL (70-105); Osmolality,Calculated 281 (280-300); Potassium 4.1 mEq/L (3.5-5.1); Sodium 136 mEq/L (136-145); Total Protein 6.7 g/dL (6.4-8.9); eGFR For African Americans > 60 (> 60); eGFR For Non-African Americans > 60 (> 60)
[2021-10-22] MEDS: Heparin 25,000 UNIT/250 ML 25,000 UNIT/250 ML IV.SOLN IVC SCH (06:05)
[2021-10-22] MEDS ORDERED: Acetaminophen 325 MG TABLET PO ONE (06:20)
[2021-10-22] MEDS: Metoprolol XL (24 HR) Succ 50 MG TAB.ER.24H PO SCH ×2 (09:25→19:35)
[2021-10-22] MEDS: Multivit/Ca/Min/Fe/FA 1 TAB TABLET PO SCH (09:25)
[2021-10-22 10:11] LABS: Magnesium 2.2 mg/dL (1.6-2.6)
[2021-10-22 12:44] LABS: Thyroid Stimulating Hormone 3.849 mcIU/mL (0.340-5.600)
[2021-10-22] MEDS: *HR* Amiodarone 200 MG TABLET PO SCH (13:00)
[2021-10-22] MEDS: Acetaminophen 325 MG TABLET PO PRN (13:30)
[2021-10-22] MEDS ORDERED: Warfarin perPT PO PRN (18:00)
[2021-10-22] MEDS ORDERED: *HR* Warfarin 3 MG TABLET PO ONE (18:00)
[2021-10-22] MEDS: Gabapentin 300 MG CAPSULE PO SCH (19:35)
[2021-10-22] MEDS: rOPINIRole 1 MG TABLET PO SCH (19:40)
[2021-10-23] MEDS: Amiodarone Premix 360 MG/200 ML BAG IVC SCH (02:22)
[2021-10-23] MEDS: Multivit/Ca/Min/Fe/FA 1 TAB TABLET PO SCH (07:21)
[2021-10-23] MEDS: *HR* Amiodarone 200 MG TABLET PO SCH (07:21)
[2021-10-23] MEDS: Metoprolol XL (24 HR) Succ 50 MG TAB.ER.24H PO SCH ×2 (07:22→20:11)
[2021-10-23 09:24] LABS: INR 1.5
[2021-10-23] MEDS: Simethicone 80 MG TAB.CHEW PO PRN (17:16)
[2021-10-23] MEDS ORDERED: *HR* Warfarin 3 MG TABLET PO ONE (18:00)
[2021-10-23] MEDS: Acetaminophen 325 MG TABLET PO PRN (20:10)
[2021-10-23] MEDS: rOPINIRole 1 MG TABLET PO SCH (20:11)
[2021-10-23] MEDS: Famotidine 20 MG TABLET PO SCH (20:11)
[2021-10-23] MEDS: Gabapentin 300 MG CAPSULE PO SCH (20:11)
[2021-10-24] MEDS: Simethicone 80 MG TAB.CHEW PO PRN (04:53)
[2021-10-24 07:13] VITALS: BP 127/65; PULSE 63; TEMP 97.5; O2SAT 90
[2021-10-24 07:18] LABS: INR 1.8
[2021-10-24] MEDS: Multivit/Ca/Min/Fe/FA 1 TAB TABLET PO SCH (08:19)
[2021-10-24] MEDS: *HR* Amiodarone 200 MG TABLET PO SCH (08:19)
[2021-10-24] MEDS: Famotidine 20 MG TABLET PO SCH (08:19)
[2021-10-24] MEDS: Metoprolol XL (24 HR) Succ 50 MG TAB.ER.24H PO SCH (08:19)
[2021-10-24] MEDS ORDERED: FLU Vac QV 21-22 (6Month+)/PF 0.5 ML SYRINGE IM ONE (11:51)
[2021-10-24] MEDS ORDERED: *HR* Warfarin 3 MG TABLET PO ONE (18:00)
== END 2021-10-24 12:50 | disposition home or self-care (01) | DRG 286 ==
LOC: EMEROOARM 21:17 → 2NNU 21:17 → SUATTDRO 10-21 00:03 → 2NNU 10-21 00:09
PROVIDERS: ADMIT Internal Medicine; ATTEND Student in an Organized Health Care Education/Training Program